=== PATIENT | male | born 1990 | race Caucasian/White ===

== ENCOUNTER 2021-12-04 17:25 | Inpatient (IN) | payer BC, SELFPAY ==
--- NOTE | ~2021-12-04 | XR_ITS ---
EXAMINATION: XR chest 1V portable DATE: 12/05/2021 06:07 INDICATION: Pancreatitis. Preop. TECHNIQUE: A single frontal view of the chest was obtained. COMPARISON: None. FINDINGS: The patient is rotated to his left. There is no pneumonia, pleural effusion, or pneumothora x. The heart size is normal. IMPRESSION: 1. No acute cardiopulmonary disease. Reviewed, dictated and finalized at location A.
--- NOTE | 2021-12-04 17:30 | ADMGEN ---
This patient, Taiwo Faria, was admitted to 2 Medical Room 248-01. Patient/family oriented to hospital policies and general routines including ID bracelet, bed and alarms, visiting hours, pain management, procedures, bathroom and other care routines, personal items, smoking policy, room service/diet, and visiting hours. Information on how to activate the Rapid Response Team has been discussed. Patient/Family are encouraged to report perceived risks to care and to ask questions if they do not understand what they are told or what they should do.
[2021-12-04 17:39] VITALS: BP 136/92; PULSE 75; RESP 16; TEMP 36.3; O2SAT 97
[2021-12-04] MEDS: DEXTROSE 5%/0.45% SOD CHL 1,000 ML 100 ML IV CONT (18:27)
[2021-12-04 19:11] LABS: Lactic Acid Reflex 1.1 mmol/L (0.7-2.0)
[2021-12-04 19:12] VITALS: BP 126/70; PULSE 71; RESP 18; TEMP 36.6; O2SAT 98
[2021-12-04 19:14] LABS: Alanine Aminotransferase 364 U/L (6-50); Albumin Level 4.2 g/dL (3.5-5.1); Alkaline Phosphatase 163 U/L (38-126); Anion Gap 12 mmol/L (8-16); Aspartate Amino Transferase 180 U/L (17-59); Bilirubin,Total 1.7 mg/dL (0.2-1.3); Blood Urea Nitrogen 12 mg/dL (9-20); Calcium 8.8 mg/dL (8.4-10.2); Carbon Dioxide 25 mmol/L (22-30); Chloride 102 mmol/L (98-107); Estimated Glomerular Filt Rate > 60; Glucose 120 mg/dL (65-110); Magnesium 1.9 mg/dL (1.6-2.3); Potassium 3.9 mmol/L (3.4-5.0); Sodium 139 mmol/L (137-145)
--- NOTE | 2021-12-04 19:31 | PM.CNGS ---
Assessment and Plan Assessment and plan (1) Biliary acute pancreatitis without necrosis or infection: Code(s): K85.10 - Biliary acute pancreatitis without necrosis or infection Status: Acute Assessment and Plan: Bowel rest with IV fluids and p.r.n. analgesics. Will try to get a CT scan tomorrow. Hopefully will resolve quickly. If not, may need MRCP and GI consult. Explained to patient he would eventually need cholecystectomy. Explained that this is usually a laparoscopic procedure. Thank you for asking us to see him in consultation. We will follow along with you. (2) Morbid obesity due to excess calories: Code(s): E66.01 - Morbid (severe) obesity due to excess calories Status: Chronic Assessment and Plan: Increases surgical risk. History of Present Illness Consult details Consult date: 12/04/21 Reason for consult: abdominal pain Narrative: Patient is a 31-year-old man who yesterday had a sausage biscuit for breakfast and then about 10:00 a.m. started noticing some mid abdominal pain. This was not very severe and in fact we work through the day without much trouble. The pain was still there this morning and but as he got up to go about his usual routine, the pain got much worse and was primarily in the right upper and mid abdomen. Pain got very severe he went to the emergency room and which field. He was noted to have tenderness in the right upper quadrant and epigastrium with guarding. Lab testing was fairly unremarkable except that his lipase was 47,000. He had an ultrasound of the right upper quadrant which did show gallstones. He has received analgesics and does feel somewhat better. He transferred here from [facility]. He is seen now in consultation. Review of Systems Review of Systems: All systems reviewed & are unremarkable except as noted in HPI and below (HPI and those items noted below) Constitutional: Constitutional: Reports as per HPI, Denies chills, Denies fever(s), Denies headache(s) and Denies night sweats Cardiovascular: Cardiovascular: Denies chest pain, Denies diaphoresis, Denies dyspnea and Denies paroxysmal nocturnal dyspnea Respiratory: Respiratory: Denies chest congestion, Denies cough and Denies dyspnea Gastrointestinal: Gastrointestinal: Reports as per HPI and Reports abdominal pain Integumentary/Breasts: Skin/Breast: Denies lesions and Denies rash [facility] Family History Family History (Updated 12/04/21 @ 17:58 by Arlene Esparza RN) Mother Hypertension Social History Social History Smoking status: Never smoker Second hand tobacco smoke exposure: Yes Alcohol intake: current Drinks per week: 1 Substance use type: does not use Spiritual care concerns: No Meds Home Medications and Allergies Home Medications Medication Instructions Recorded Confirmed Type No Home Medications 12/04/21 12/04/21 History Allergies Allergy/AdvReac Type Severity Reaction Status Date / Time No Known Allergies Allergy Verified 12/04/21 17:45 Vital Signs Vital Signs - 24 hr 12/04/21 17:39 12/04/21 17:30 12/04/21 19:12 Temperature 36.3 C L 36.6 C Pulse Rate 75 71 Respiratory Rate 16 18 Blood Pressure 136/92 H 126/70 Pulse Oximetry 97 98 Oxygen Delivery Room Air Exam Const: General: cooperative, comfortable, no acute distress, alert and awake Nutritional Appearance: obese morbidly obese (Reportedly weighs 497 lb) Orientation/consciousness: patient oriented x3 and No confusion HENMT: Head: normocephalic and atraumatic Mouth: Yes Normal oral and palatal mucosa present Eyes: Conjunctivae: conjunctivae normal Pupils: Equal, round and reactive pupils present EOM: EOMs intact bilaterally Neck: Neck: normal visual inspection, no lymphadenopathy and nontender Resp: Effort & Inspection: normal respiratory effort Auscultation: clear to auscultation bilaterally Cardio: Rate: regular rate Rhythm: regular rh
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
[2021-12-04] MEDS: IBUPROFEN IV 800 MG/200 ML 800 MG/200 ML BAG 400 MG IVPB (22:12)
[2021-12-04 23:09] VITALS: BP 138/83; PULSE 64; RESP 18; TEMP 36.4; O2SAT 99
[2021-12-05 03:39] VITALS: BP 137/80; PULSE 74; RESP 16; TEMP 36.2; O2SAT 99
[2021-12-05 04:09] LABS: Appearance Urine Clear (Clear); Bilirubin Urine 1+ (Negative); Color Urine Yellow (Yellow); Glucose Urine UA Negative (Negative); Ketones Urine Negative (Negative); Leukocyte Esterase Ur Negative LEU/UL (Negative); Nitrate Urine Negative (Negative); Protein Urine Negative (Negative); Specific Grav Ur >= 1.030 (1.001-1.035); Urobilinogen Urine 0.2 mg/dL (<2.0); pH Urine 5.5 (5.0-9.0)
[2021-12-05 04:17] LABS: Add Urine Microscopic? YES; Blood Urine Trace-Intact (Negative); Mucus Urine Rare /lpf; RBC Urine 0-2 /hpf (0-2); Squamous Epithelial Cell Urine Rare /hpf (Few)
[2021-12-05] MEDS: DEXTROSE 5%/0.45% SOD CHL 1,000 ML 100 ML IV CONT ×2 (04:54→15:40)
[2021-12-05 06:08] VITALS: BMI 59.8
[2021-12-05 06:37] LABS: Basophils Percent Auto 0.3 % (0.2-1.2); Eosinophils Absolute Auto 0.6 K/mm3 (0-0.3); Eosinophils Percent Auto 5.2 % (0-4.4); Hematocrit 44.1 % (42.0-52.0); Hemoglobin 13.9 g/dL (14.0-18.0); Immature Granulocyte Absolute 0.03 K/mm3 (0.00-0.031); Immature Granulocyte Percent A 0.3 % (0-0.5); Lymphocytes Absolute Auto 1.61 K/mm3 (0.9-3.2); Lymphocytes Percent Auto 14.9 % (18.3-44.2); Mean Corpuscular HGB Conc 31.5 g/dl (32-36); Mean Corpuscular Hemoglobin 28.1 pg (26-34); Mean Corpuscular Volume 89.1 fl (80-100); Mean Platelet Volume 9.9 fl (7.4-10.4); Monocytes Absolute Auto 0.7 K/mm3 (0.1-0.6); Monocytes Percent Auto 6.7 % (2.6-8.5); Neutrophils Absolute Auto 7.8 K/mm3 (1.3-6.7); Neutrophils Percent Auto 72.6 % (45.5-73.1); Platelet Count Result 258 k/mm3 (150-375); Red Blood Count 4.95 M/mm3 (4.6-6.20); White Blood Count 10.8 K/mm3 (4.5-10.0)
[2021-12-05 06:47] LABS: Alanine Aminotransferase 282 U/L (6-50); Albumin Level 3.9 g/dL (3.5-5.1); Alkaline Phosphatase 134 U/L (38-126); Anion Gap 7 mmol/L (8-16); Aspartate Amino Transferase 101 U/L (17-59); Bilirubin,Total 1.5 mg/dL (0.2-1.3); Blood Urea Nitrogen 15 mg/dL (9-20); Calcium 8.4 mg/dL (8.4-10.2); Carbon Dioxide 29 mmol/L (22-30); Chloride 100 mmol/L (98-107); Cholesterol 154 mg/dL (0-200); Estimated CRCL calculation 212 ml/min; Estimated Glomerular Filt Rate > 60; Glucose 99 mg/dL (65-110); HDL Direct 31 mg/dL; Lipase 1365 U/L (23-300); Potassium 3.5 mmol/L (3.4-5.0); Sodium 136 mmol/L (137-145); Triglycerides 97 mg/dL (<150)
[2021-12-05 06:48] LABS: INR 1.2; Partial Thromboplastin Time 33.9 SECONDS (22.3-36.8); Prothrombin Time 14.8 Seconds (11.1-14.7)
[2021-12-05 06:58] LABS: LDL Cholesterol Direct 85 mg/dL
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
[2021-12-05] MEDS: ENOXAPARIN 40 MG/0.4 ML SYRINGE SUB-Q (09:57)
[2021-12-05 09:58] VITALS: BP 146/95; PULSE 81; RESP 20; TEMP 36.1; O2SAT 100
--- NOTE | 2021-12-05 10:19 | PM.PNGS ---
Progress Note: A&P Assessment and Plan (1) Biliary acute pancreatitis without necrosis or infection: Code(s): K85.10 - Biliary acute pancreatitis without necrosis or infection Status: Acute Assessment and Plan: Lipase down to 1300 today from 47,000. Clinically improving with no abdominal pain this morning. Abdominal tenderness improved. Will allow clear liquids. Continue IV fluids. Patient would still like to have surgery done while inpatient, but if unable to schedule this until next week, he could be discharged home and brought back for elective cholecystectomy next week if stable for discharge and LFTs trending down prior to surgery. Continue to trend labs. (2) Elevated LFTs: Code(s): R79.89 - Other specified abnormal findings of blood chemistry Status: Acute Assessment and Plan: LFTs down slightly, total bilirubin 1.5 today. Patient will not fit in MRI machine due to body habitus/morbid obesity, so he is unable to have MRCP. Trend labs. We can plan for an intraoperative cholangiogram to further evaluate for filling defects in the common bile duct during surgery. (3) Morbid obesity due to excess calories: Code(s): E66.01 - Morbid (severe) obesity due to excess calories Status: Chronic Assessment and Plan: Increases risks for surgery. Plan I have discussed the patient's case and plan of care with Dr. Alamo. Subjective Subjective Date/Time Seen: 12/05/21 10:19 Patient reports: no new complaints, feels better, pain is less and flatus Interval history: Chart reviewed. Patient seen and examined. He reports feeling much better today and his abdominal pain is significantly better. He actually reports being hungry. No nausea or vomiting overnight. Review of Systems Review of Systems: All systems reviewed & are unremarkable except as noted in HPI and below Exam Const: General: no acute distress and alert Nutritional Appearance: obese morbidly obese Orientation/consciousness: patient oriented x3 GI: Inspection: Pannus present and obesity GI Palp: Yes Soft to palpation, Yes Tenderness to palpation present (GI) (epigastric, RUQ, and RLQ), No Guarding due to palpation present (GI) and No Rebound tenderness present Auscultation: normal bowel sounds Psych: Mental Status: mental status grossly normal Insight: Good insight present (Psych) Objective Data Vital Signs Vital Signs: Vital Signs - 24 hr 12/04/21 17:39 12/04/21 17:30 12/04/21 19:12 Temperature 97.3 F L 97.8 F Pulse Rate 75 71 Respiratory Rate 16 18 Blood Pressure 136/92 H 126/70 Pulse Oximetry 97 98 Oxygen Delivery Room Air 12/04/21 20:00 12/04/21 23:09 12/05/21 03:39 Temperature 97.5 F L 97.2 F L Pulse Rate 64 74 Respiratory Rate 18 16 Blood Pressure 138/83 137/80 Pulse Oximetry 99 99 Oxygen Delivery Room Air 12/05/21 09:58 Temperature 97 F L Pulse Rate 81 Respiratory Rate 20 Blood Pressure 146/95 H Pulse Oximetry 100 Oxygen Delivery Intake/Output Intake/Output: Intake & Output 12/02/21 12/03/21 12/04/21 12/05/21 23:59 23:59 23:59 23:59 Intake Total 100 1100 Output Total 500 Balance 100 600 Meds/Results Medications: Active Medications Generic Name Dose Route Start Last Admin Trade Name Freq PRN Reason Stop Dose Admin Acetaminophen 500 mg 12/04/21 19:22 Acetaminophen 500 Mg Tablet PO Q6H PRN Mild Pain (1-3) or Fever Enoxaparin Sodium 40 mg 12/05/21 09:00 12/05/21 09:57 Enoxaparin 40 Mg/0.4 Ml Syringe SUB-Q 40 mg DAILY KAMLA Administration Dextrose/Sodium Chloride 1,000 mls @ 100 mls/hr 12/04/21 17:45 12/05/21 04:54 Dextrose 5% Sodium Chloride 0.45% IV CONT 100 mls/hr .Q10H KAMLA Administration Piperacillin/Tazobactam/Dextrose 3.375 gm in 50 mls @ 100 mls/hr 12/04/21 21:00 12/05/21 09:56 Zosyn 3.375 Gm/D5w 50ml Pm IVPB 100 mls/hr Q6H KAMLA Administration Morphine Sulfate 2 mg 12/04/21 19:17
--- NOTE | 2021-12-05 12:32 | PM.IMPN ---
Progress Note: A&P Assessment and Plan (1) Cholelithiasis: Code(s): K80.20 - Calculus of gallbladder without cholecystitis without obstruction Status: Acute Assessment and Plan: -noted on imaging at outside facility -surgery consulted -further management per surgery, possible OR tomorrow depending on lipase/LFTs -unable to do MRCP as patient will not fit in the MRI machine -continue zosyn for now (2) Biliary acute pancreatitis without necrosis or infection: Code(s): K85.10 - Biliary acute pancreatitis without necrosis or infection Status: Acute Assessment and Plan: -plan as above -currently on clear liquids per general surgery -lipase 47,000 at outside facility, down to 1365 today -continue IVF Additional Plan [place] [facility] [place] Date/time seen: 12/05/21 12:32 Interval history: 31 yo male w/ hx of migraines and morbid obesity w/ BMI of 59.8 admitted for cholelithiasis. Pt improving clinically. Pain is improving. No N/V. Still NPO, switched to clears by general surgery this afternoon. Possible surgery tomorrow. Review of Systems Review of Systems: All systems reviewed & are unremarkable except as noted in HPI and below Exam Narrative: General: No acute distress, non toxic appearing, morbidly obese Eyes: PERRL, no scleral icterus HEENT: NCAT, external ears normal, MMM Respiratory: No respiratory distress, Lungs CTA bilaterally, no wheezing Cardiovascular: RRR, no murmur Abdominal: Soft, nontender, non distended, no rebound or guarding Musculoskeletal: Moves all 4 extremities, no edema Neurological: A/Ox3, speech clear, no facial asymmetry Skin: Warm, dry, no rashes Psychiatric: Normal affect, normal mood Objective Data Vital Signs Vital Signs: Vital Signs - 24 hr 12/04/21 17:39 12/04/21 17:30 12/04/21 19:12 Temperature 97.3 F L 97.8 F Pulse Rate 75 71 Respiratory Rate 16 18 Blood Pressure 136/92 H 126/70 Pulse Oximetry 97 98 Oxygen Delivery Room Air 12/04/21 20:00 12/04/21 23:09 12/05/21 03:39 Temperature 97.5 F L 97.2 F L Pulse Rate 64 74 Respiratory Rate 18 16 Blood Pressure 138/83 137/80 Pulse Oximetry 99 99 Oxygen Delivery Room Air 12/05/21 09:58 12/05/21 10:00 Temperature 97 F L Pulse Rate 81 Respiratory Rate 20 Blood Pressure 146/95 H Pulse Oximetry 100 Oxygen Delivery Room Air Intake/Output Intake/Output: Intake & Output 12/02/21 12/03/21 12/04/21 12/05/21 23:59 23:59 23:59 23:59 Intake Total 100 1990 Output Total 500 Balance 100 1490 Meds/Results Medications: Active Medications Generic Name Dose Route Start Last Admin Trade Name Freq PRN Reason Stop Dose Admin Acetaminophen 500 mg 12/04/21 19:22 Acetaminophen 500 Mg Tablet PO Q6H PRN Mild Pain (1-3) or Fever Enoxaparin Sodium 40 mg 12/05/21 09:00 12/05/21 09:57 Enoxaparin 40 Mg/0.4 Ml Syringe SUB-Q 40 mg DAILY KAMLA Administration Dextrose/Sodium Chloride 1,000 mls @ 100 mls/hr 12/04/21 17:45 12/05/21 04:54 Dextrose 5% Sodium Chloride 0.45% IV CONT 100 mls/hr .Q10H KAMLA Administration Piperacillin/Tazobactam/Dextrose 3.375 gm in 50 mls @ 100 mls/hr 12/04/21 21:00 12/05/21 10:30 Zosyn 3.375 Gm/D5w 50ml Pm IVPB Infused Q6H KAMLA Infusion Morphine Sulfate 2 mg 12/04/21 19:17 Morphine Sulfate (*Crx) 2 Mg/Ml Inj IV PUSH Q2H PRN Pain Rated 4-6 Morphine Sulfate 4 mg 12/04/21 19:17 Morphine Sulfate (*Crx) 4 Mg/Ml Inj IV PUSH Q2H PRN Pain Rated 7-10 Ondansetron HCl 4 mg 12/04/21 19:17 Ondansetron Inj 4 Mg/2 Ml Vial IV PUSH Q4H PRN Nausea And Vomiting Radiology Results: ITS Impressions Chest X-Ray 12/05/21 06:46 IMPRESSION: 1. No acute cardiopulmonary disease. Labs Labs: Laboratory Results - last 24 hr 12/04/21 12/04/21 12/05/21 18:55 18:55 04:03 WBC
[2021-12-05 13:50] VITALS: BP 132/68; PULSE 82; RESP 20; TEMP 36.7; O2SAT 99
[2021-12-05 16:00] VITALS: BP 127/68; PULSE 84; RESP 16; TEMP 36.6; O2SAT 99
[2021-12-05 20:00] VITALS: BP 142/90; PULSE 85; RESP 17; TEMP 36.2; O2SAT 100
[2021-12-05] MEDS: ACETAMINOPHEN 500 MG TABLET PO (20:47)
[2021-12-05 23:15] VITALS: BP 126/78; PULSE 73; RESP 16; TEMP 37; O2SAT 97
[2021-12-06] MEDS: DEXTROSE 5%/0.45% SOD CHL 1,000 ML 100 ML IV CONT (02:35)
[2021-12-06 04:00] VITALS: BP 116/82; PULSE 88; RESP 18; TEMP 36.4; O2SAT 98
[2021-12-06 05:50] LABS: Basophils Percent Auto 0.3 % (0.2-1.2); Eosinophils Absolute Auto 0.7 K/mm3 (0-0.3); Eosinophils Percent Auto 5.8 % (0-4.4); Hematocrit 43.4 % (42.0-52.0); Hemoglobin 13.6 g/dL (14.0-18.0); Immature Granulocyte Absolute 0.03 K/mm3 (0.00-0.031); Immature Granulocyte Percent A 0.3 % (0-0.5); Lymphocytes Percent Auto 13.8 % (18.3-44.2); Mean Corpuscular HGB Conc 31.3 g/dl (32-36); Mean Corpuscular Hemoglobin 27.9 pg (26-34); Mean Corpuscular Volume 89.1 fl (80-100); Mean Platelet Volume 9.7 fl (7.4-10.4); Monocytes Absolute Auto 0.8 K/mm3 (0.1-0.6); Monocytes Percent Auto 6.6 % (2.6-8.5); Neutrophils Absolute Auto 8.5 K/mm3 (1.3-6.7); Neutrophils Percent Auto 73.2 % (45.5-73.1); Platelet Count Result 278 k/mm3 (150-375); Red Blood Count 4.87 M/mm3 (4.6-6.20); Red Cell Distribution Width 13.8 % (11.5-14.5); White Blood Count 11.6 K/mm3 (4.5-10.0)
[2021-12-06 06:04] LABS: Alanine Aminotransferase 196 U/L (6-50); Albumin Level 4.2 g/dL (3.5-5.1); Alkaline Phosphatase 119 U/L (38-126); Anion Gap 12 mmol/L (8-16); Aspartate Amino Transferase 51 U/L (17-59); Bilirubin,Total 1.5 mg/dL (0.2-1.3); Blood Urea Nitrogen 10 mg/dL (9-20); Calcium 8.3 mg/dL (8.4-10.2); Carbon Dioxide 27 mmol/L (22-30); Chloride 100 mmol/L (98-107); Estimated CRCL calculation 212 ml/min; Estimated Glomerular Filt Rate > 60; Glucose 95 mg/dL (65-110); Lipase 281 U/L (23-300); Potassium 3.7 mmol/L (3.4-5.0); Sodium 139 mmol/L (137-145)
--- NOTE | 2021-12-06 08:29 | PM.PNGS ---
Progress Note: A&P Assessment and Plan (1) Biliary acute pancreatitis without necrosis or infection: Code(s): K85.10 - Biliary acute pancreatitis without necrosis or infection Status: Acute Assessment and Plan: essentially resolved. Patient will need outpatient laparoscopic cholecystectomy with intraoperative cholangiogram. My office will call him and arrange for this to be done in the next couple of weeks. The procedure the risks benefits have been discussed. He understands and agrees. He will stay on a low-fat diet. It is okay to return to work without restriction on Thursday. We will be in touch with him next week to arrange the surgery. Subjective Subjective Date/Time Seen: 12/06/21 08:29 Patient reports: feels better, pain is less ( No abdominal pain at all.), tolerating liquids well, afebrile and other ( Wants to go home) Review of Systems Review of Systems: All systems reviewed & are unremarkable except as noted in HPI and below ( HPI and those items noted below) Constitutional: Constitutional: Denies chills and Denies fever(s) Cardiovascular: Cardiovascular: Denies chest pain, Denies diaphoresis, Denies dyspnea and Denies paroxysmal nocturnal dyspnea Respiratory: Respiratory: Denies chest congestion, Denies cough and Denies dyspnea Gastrointestinal: Gastrointestinal: Reports as per HPI, Denies abdominal pain, Denies bloating, Denies heartburn and Denies nausea Integumentary/Breasts: Skin/Breast: Denies lesions and Denies rash Exam Const: General: comfortable and no acute distress; No confusion Orientation/consciousness: patient oriented x3 and No confusion GI: Inspection: normal to inspection and obesity GI Palp: Yes Soft to palpation, No Tenderness to palpation present (GI), No Guarding due to palpation present (GI), No Palpable mass present and No Rebound tenderness present Auscultation: normal bowel sounds Neuro: General: patient oriented x3, no focal motor deficits and No confusion Extrem: General: no calf tenderness and no edema Psych: Affect: normal affect Insight: Good insight present (Psych) Judgement: Good judgement present (Psych) Objective Data Vital Signs Vital Signs: Vital Signs - 24 hr 12/05/21 09:58 12/05/21 10:00 12/05/21 13:50 Temperature 36.1 C L 36.7 C Pulse Rate 81 82 Respiratory Rate 20 20 Blood Pressure 146/95 H 132/68 Pulse Oximetry 100 99 Oxygen Delivery Room Air 12/05/21 16:00 12/05/21 20:00 12/05/21 23:15 Temperature 36.6 C 36.2 C L 37.0 C Pulse Rate 84 85 73 Respiratory Rate 16 17 16 Blood Pressure 127/68 142/90 H 126/78 Pulse Oximetry 99 100 97 Oxygen Delivery 12/06/21 04:00 Temperature 36.4 C Pulse Rate 88 Respiratory Rate 18 Blood Pressure 116/82 Pulse Oximetry 98 Oxygen Delivery Intake/Output Intake/Output: Intake & Output 12/03/21 12/04/21 12/05/21 12/06/21 23:59 23:59 23:59 23:59 Intake Total 100 3750 1150 Output Total 500 Balance 100 3250 1150 Meds/Results Medications: Active Medications Generic Name Dose Route Start Last Admin Trade Name Freq PRN Reason Stop Dose Admin Acetaminophen 500 mg 12/04/21 19:22 12/05/21 20:47 Acetaminophen 500 Mg Tablet PO 500 mg Q6H PRN Administration Mild Pain (1-3) or Fever Enoxaparin Sodium 40 mg 12/05/21 09:00 12/06/21 08:18 Enoxaparin 40 Mg/0.4 Ml Syringe SUB-Q Not Given DAILY KAMLA Dextrose/Sodium Chloride 1,000 mls @ 100 mls/hr 12/04/21 17:45 12/06/21 02:35 Dextrose 5% Sodium Chloride 0.45% IV CONT 100 mls/hr .Q10H KAMLA Administration Piperacillin/Tazobactam/Dextrose 3.375 gm in 50 mls @ 100 mls/hr 12/04/21 21:00 12/06/21 03:07 Zosyn 3.375 Gm/D5w 50ml Pm IVPB Infused Q6H KAMLA Infusion Morphine Sulfate 2 mg 12/04/21 19:17 Morphine Sulfate (*Crx) 2 Mg/Ml Inj IV PUSH Q2H PRN Pain Rated 4-6 Morphine Sulfate 4 mg 12/04/21 19:17 Morphine Sulfate (*Crx) 4 Mg/Ml Inj IV PUSH Q2H PRN
--- NOTE | 2021-12-06 08:38 | PM.DS ---
DS: Admitting Diagnosis Discharge Date 12/06/21 Admitting Diagnosis cholelithiasis DS: Discharge Diagnosis Discharge Diagnosis (1) Cholelithiasis: Code(s): K80.20 - Calculus of gallbladder without cholecystitis without obstruction Status: Acute Assessment and Plan: -noted on imaging at outside facility -surgery consulted -unable to do MRCP as patient will not fit in the MRI machine -symptoms have resolved. Per surgery pt to be discharged home on low fat diet. Their office will call over the next week to set up outpatient cholecystectomy. -all questions and concerns addressed, return precautions provided (2) Biliary acute pancreatitis without necrosis or infection: Code(s): K85.10 - Biliary acute pancreatitis without necrosis or infection Status: Acute Assessment and Plan: -plan as above -lipase 47,000 at outside facility, down to 281 today (3) Elevated LFTs: Code(s): R79.89 - Other specified abnormal findings of blood chemistry Status: Acute Assessment and Plan: -likely due to above -cannot do MRCP as noted above -continue to downtrend daily -repeat CMP in 3 days DS: Summary Hospital Course Reason for hospitalization: 31 yo male w/ hx of migraines and morbid obesity w/ BMI of 59.8 admitted for cholelithiasis. Please see HPI for further details. Hospital Course: Please see above for details of hospital course. Status at Discharge Functional status at discharge: independent ambulation Time Spent with Patient Time attestation: Total time spent providing and/or coordinating discharge services: 32 Time spent: Greater than 30 minutes Exam Narrative: General: No acute distress, non toxic appearing, morbidly obese Eyes: PERRL, no scleral icterus HEENT: NCAT, external ears normal, MMM Respiratory: No respiratory distress, Lungs CTA bilaterally, no wheezing Cardiovascular: RRR, no murmur Abdominal: Soft, nontender, non distended, no rebound or guarding Musculoskeletal: Moves all 4 extremities, no edema Neurological: A/Ox3, speech clear, no facial asymmetry Skin: Warm, dry, no rashes Psychiatric: Normal affect, normal mood DS: Data Data Completed and Pending Labs on day of discharge: Labs from last 24 hours 12/06/21 12/06/21 05:12 05:12 WBC 11.6 H RBC 4.87 Hgb 13.6 L Hct 43.4 MCV 89.1 MCH 27.9 MCHC 31.3 L RDW 13.8 Plt Count 278 MPV 9.7 Immature Gran % (Auto) 0.3 Neut % (Auto) 73.2 H Lymph % (Auto) 13.8 L [place] % (Auto) 6.6 Eos % (Auto) 5.8 H Baso % (Auto) 0.3 Lymph # (Auto) 1.60 [place] # (Auto) 0.8 H Eos # (Auto) 0.7 H Baso # (Auto) 0.0 Abs Immat Gran (auto) 0.03 Absolute Neuts (auto) 8.5 H Absolute Nucleated RBC 0.0 Nucleated RBC % 0.0 Sodium 139 Potassium 3.7 Chloride 100 Carbon Dioxide 27 Anion Gap 12 BUN 10 D Creatinine 0.90 Estim Creat Clear Calc 212 Estimated GFR > 60 Glucose 95 Calcium 8.3 L Total Bilirubin 1.5 H AST 51 ALT 196 H Alkaline Phosphatase 119 Total Protein 8.0 Albumin 4.2 Lipase 281 Discharge Plan Discharge Attending physician on discharge: Paty Gómez Consulting providers: [facility] Discharging Clinician: Freda Rose Anticipated Discharge Date/Time: 12/06/21 08:41 Patient Disposition: Home, Self-Care Activity: may shower and as tolerated Diet: low fat Discharge Instructions: Please give patient a work excuse for the time he was in the hospital- 12/04 through 12/06/2021. Can return to work on Thursday12/09/2021 without restriction. Stay on a low-fat diet after discharge. Dr. Beard office will arrange outpatient laparoscopic cholecystectomy with intraoperative cholangiogram and call patient with the time of the surgery and further instructions. Return to hospital for any new or worsening symptoms. Please have repeat lab work done in 3 days to re
[2021-12-06 09:23] VITALS: BP 139/76; PULSE 91; RESP 15; TEMP 36.3; O2SAT 98
== END 2021-12-06 10:20 | disposition home or self-care (01) | DRG 282 ==
PROVIDERS: Nurse Practitioner; Admitting Provider Internal Medicine; Visit Provider Physician Assistant
DX: K85.10 Biliary acute pancreatitis without necrosis or infection (principal); K80.20 Calculus of gallbladder without cholecystitis without obstruction; G43.909 Migraine, unspecified, not intractable, without status migrainosus; R79.89 Other specified abnormal findings of blood chemistry; E66.01 Morbid (severe) obesity due to excess calories; Z68.43 Body mass index [BMI] 50.0-59.9, adult
CPT/HCPCS: 36415; 71045; 80053; 80061; 81001; 83605; 83690; 83735; 84443; 85025; 85610; 85730; A9270; J1650; J1741; J2543